=== PATIENT | male | born 1985 | race Caucasian/White ===

== ENCOUNTER 2021-04-25 09:04 | Outpatient (CLI) | payer BC, SELFPAY ==
--- NOTE | ~2021-04-25 | XR_ITS ---
EXAMINATION: XR knee RT min 4V DATE: 04/25/2021 09:44 INDICATION: Right knee pain. TECHNIQUE: 4 views of right knee including standing views were obtained. COMPARISON: None. FINDINGS: Bone alignment is normal. No fracture. There is mild osteoarthritis of medial compartment c haracterized by a tiny osteophyte. No joint space narrowing. There is a small knee joint effusion. IMPRESSION: 1. Mild right knee osteoarthritis. 2. Small right knee joint effusion. Reviewed, dictated and finalized at location A. E WORK [employer]
== END 2021-04-25 09:05 | disposition home or self-care (01) ==
PROVIDERS: PCP Internal Medicine; Visit Provider Internal Medicine
DX: M25.561 Pain in right knee (principal)
CPT/HCPCS: 73564

== ENCOUNTER → 2021-05-07 13:51 | Outpatient (CLI) | payer BC, SELFPAY ==
--- NOTE | ~2021-05-07 | MR_ITS ---
EXAMINATION: MR knee RT wo con DATE: 05/07/2021 14:23 INDICATION: Right knee pain post injury. Meniscal tear.. TECHNIQUE: Magnetic resonance imaging (MRI) of the right knee was performed without intravenous contr ast. Sequences included coronal PD-weighted FSE, coronal PD-weighted FS FSE, sagittal T2-weighted FS E, sagittal PD-weighted FS FSE and axial PD weighted fat saturated FSE. COMPARISON: None. FINDINGS: Medial compartment: Medial meniscus is normal. There is chondral swelling with subtle signal heterogeneity and contour ir regularity at the lateral aspect of the anterior weightbearing medial femoral condyle and associated mild underlying edema-like marrow signal change suspicious for partial thickness chondral tear/fissur e and bone contusion. Normal cartilage at the medial tibial plateau. Lateral compartment: Lateral meniscus is normal. Small linear pattern of cartilage signal irregularity at the central to p osterior aspect of the lateral tibial plateau also suspicious for chondral fissure. Normal cartilage along the weightbearing lateral femoral condyle. Patellofemoral compartment: Articular cartilage is normal. Ligaments and tendons: Anterior and posterior cruciate ligaments are normal. The medial collateral ligament and fibular pippa ateral ligament complex are normal. The extensor mechanism is normal. The visualized medial and later al hamstring tendons as well as the iliotibial band are normal. Fluid: Physiologic amount of fluid in the joint space. No loose osteochondral bodies identified. There is a long multilobulated ganglion cyst which extends approximately 4 cm in length along the anteromedial r im of the medial tibial plateau peripheral to the medial meniscus. Osseous/other: There is additional mild marrow edema along the nonarticular medial side of the anterior weightbearin g medial femoral condyle. No fracture or pathologic marrow replacing process. There are couple low si gnal intensity tiny bone islands at the posterior aspect of the medial and lateral femoral condyles. IMPRESSION: 1. Suggestion of partial-thickness chondral fissures at the lateral tibial plateau and at the anterio r weightbearing medial femoral condyle, the latter with some underlying marrow signal change which co uld be either reactive related to the fissure or due to a posttraumatic bone contusion. 2. additional marrow edema along the nonarticular medial side of the anterior weightbearing medial fe moral condyle also suspicious for bone contusion. 3. Long thin multilobulated ganglion cyst extending along the anteromedial rim of the medial tibial p lateau. Differential would include a pair meniscal cyst although the medial meniscus appears normal w ith no evident tear. Reviewed, dictated and finalized at location A. IMPRESSION: 1. Suggestion of partial-thickness chondral fissures at the lateral tibial plat eau and at the anterior weightbearing medial femoral condyle, the latter with s ome underlying marrow signal change which could be either reactive related to t he fissure or due to a posttraumatic bone contusion. 2. additional marrow edema along the nonarticular medial side of the anterior w eightbearing medial femoral condyle also suspicious for bone contusion. 3. Long thin multilobulated ganglion cyst extending along the anteromedial rim of the medial tibial plateau. Differential would include a pair meniscal cyst a lthough the medial meniscus appears normal with no evident tear.
== END ==
PROVIDERS: PCP Internal Medicine; Visit Provider Internal Medicine
DX: M25.561 Pain in right knee (principal)
CPT/HCPCS: 73721

== ENCOUNTER 2022-01-21 17:23 | Emergency (ER) | payer BC, SELFPAY ==
--- NOTE | 2022-01-21 17:28 | ED.URI ---
HPI - URI/Sore Throat General Chief Complaint: Upper Respiratory Infection Stated Complaint: sore throat, cough, headache, congestion Time Seen by Provider: 01/21/22 17:28 Source: patient and RN notes reviewed History of Present Illness HPI Narrative: Patient is a 36-year-old male who presents to urgent care with complaints of sore throat, cough, headache, congestion and fever. Patient states it started approximately 2-1/2 hours ago. States he did have a slight cough last night. Patient is not taking any medications [id number] for his symptoms. He states he is having a constitution party at his house on Thursday and was wondering if he should ?cancel his constitution party?. States that no one else in the home has been ill. No other acute complaints. No acute distress noted. Patient aware of the plan of care. Some parts of this dictation were generated by voice recognition software and may contain typographical and/or grammatical inaccuracies. Related Data Home Medications Medication Instructions Recorded Confirmed No Home Medications 01/21/22 01/21/22 Allergies Allergy/AdvReac Type Severity Reaction Status Date / Time No Known Allergies Allergy Mild Unverified 01/21/22 17:29 Review of Systems Review of Systems: CONSTITUTIONAL: Reports of fever, chills EYES: Denies visual changes, redness, or discharge. ENT: Reports a sore throat, drainage, nasal congestion CARDIOVASCULAR: Denies chest pain, palpitations, or edema. RESPIRATORY: Denies cough or dyspnea. GASTROINTESTINAL: Denies abdominal pain, nausea, vomiting, or diarrhea. GENITOURINARY: Denies dysuria or hematuria. SKIN: Denies rash or itching. MUSCULOSKELETAL: Denies back pain, joint pain. reports of body aches NEUROLOGIC: Reports of headache All other systems reviewed are negative, except as documented in HPI. PMFSH Comments At the time of my signature, I reviewed and agree with the nursing past medical, surgical, social, and family history. There is no relevant family history pertinent to the patient complaint. Exam Narrative: GENERAL: This is a well-nourished, well-developed patient. Appears fatigued HEAD: normocephalic, atraumatic. EYES: PERRL. Sclera clear/white. Vision is grossly intact. EARS: External ears normal, auditory canals clear and without drainage, TMs normal without perforation. Hearing grossly intact. NOSE: External nose normal with no obvious nasal discharge, nares without redness, yellow rhinorrhea. THROAT: Mucous membranes moist, posterior pharynx clear. Moderate postnasal drainage NECK: Neck supple, non-tender without lymphadenopathy, masses or thyromegaly. CARDIOVASCULAR: Regular rate and rhythm without murmurs, gallops, or rubs. RESPIRATORY: Cough noted on exam. Clear to auscultation. Breath sounds equal bilaterally. No wheezes, rales, or rhonchi. SKIN: warm, intact with no suspicious lesions or rash, good texture and turgor. NEURO: awake, alert, and oriented to person, place and time. There were no obvious focal neurologic abnormalities. EXTREMITIES: No clubbing, cyanosis, or edema. Course Course Level of Care: Express Care Visit Vital Signs Vital signs: Vital Signs Temperature 99.4 F 01/21/22 17:37 Pulse Rate 80 01/21/22 17:37 Respiratory Rate 16 01/21/22 17:37 Blood Pressure 148/97 H 01/21/22 17:37 Pulse Oximetry 100 01/21/22 17:37 Temperature 99.4 F 01/21/22 17:41 Pulse Rate 80 01/21/22 17:41 Respiratory Rate 16 01/21/22 17:41 Blood Pressure 148/97 H 01/21/22 17:41 Pulse Oximetry 100 01/21/22 17:41 Reviewed- Patient is informed that they may have pre-hypertension or hypertension based on a blood pressure reading in the department. I recommend the patient call the primary care provider listed on their discharge instructions or a physician of their choice this week to arrange follow-up for further evaluation of possible pre-hypertension or hypertension. MDM - URI/Sore Throat MDM Narrative Medical deci
[2022-01-21 17:37] VITALS: BP 148/97; PULSE 80; RESP 16; TEMP 37.4; O2SAT 100
[2022-01-21 17:41] VITALS: BP 148/97; PULSE 80; RESP 16; TEMP 37.4; O2SAT 100
== END 2022-01-21 18:07 | disposition home or self-care (01) ==
PROVIDERS: Emergency Provider Nurse Practitioner Family; PCP Internal Medicine
DX: B34.9 Viral infection, unspecified (principal); I10 Essential (primary) hypertension
CPT/HCPCS: 87804; 99213; G0463

== ENCOUNTER 2023-09-25 14:11 | Outpatient (CLI) | payer OTHER, SELFPAY ==
--- NOTE | ~2023-09-25 | US_ITS ---
Left upper chest wall ULTRASOUND Ordering provider: Yaakov Koehler MD History: . Chest wall mass . Comparison: None. FINDINGS/impression: Subcutaneous slightly Hypoechoic area measuring 2.2 x 0.7 x 2.5 cm which is most likely lipoma. Follo w-up advised. Reviewed, dictated and finalized at location A.
== END 2023-09-25 14:12 ==
PROVIDERS: PCP Internal Medicine; Visit Provider Internal Medicine
DX: R22.2 Localized swelling, mass and lump, trunk (principal)
CPT/HCPCS: 76604

== ENCOUNTER 2025-01-04 15:44 | Emergency (ER) | payer OTHER, SELFPAY ==
--- NOTE | ~2025-01-04 | XR_ITS ---
EXAMINATION: KUB: DATE: 01/04/2025 INDICATION: Right flank pain since last Thursday. Nausea. TECHNIQUE: Supine AP view of the abdomen were obtained. COMPARISON: None. FINDINGS: No abnormal calcific densities in the projection of the kidneys. Calcific densities in the pelvis on both sides probably representing phleboliths. No abnormal soft tissue densities are seen. IMPRESSION: 1. No definite abnormal urinary tract calculi on the supine radiograph of the abdomen. Probable phleboliths in the pelvis. If symptoms warrant additional evaluation with ultrasound or CT scan is recommended. Reviewed, dictated and finalized at location T. ARE MANAGER IMPRESSION: 1. No definite abnormal urinary tract calculi on the supine radiograph of the a bdomen. Probable phleboliths in the pelvis. If symptoms warrant additional eval uation with ultrasound or CT scan is recommended.
[2025-01-04 16:06] LABS: EDUAAPPEAR Clear; EDUABILI Negative (Negative); EDUABLOOD Trace (Negative); EDUACOLOR1 Yellow; EDUAGLUCOSE Negative (Negative); EDUAKETONE Negative (Negative); EDUALEUKO Negative (Negative); EDUANITRATE Negative (Negative); EDUAPH 7.0; EDUAPROTEIN Negative (Negative); EDUASPGRAVITY 1.010; EDUAUROBILI 0.2
[2025-01-04 16:07] VITALS: BP 161/95; PULSE 71; RESP 16; TEMP 36.9; O2SAT 100
--- NOTE | 2025-01-04 17:07 | ED_ITS ---
HPI - Back Pain/Injury General Chief Complaint: Urogenital-Male Stated Complaint: R SIDE/FLANK PAIN/NAUSEA Time Seen by Provider: 01/04/25 16:45 Source: patient and RN notes reviewed Mode of arrival: ambulatory Limitations: no limitations History of Present Illness HPI Narrative: 39-year-old male patient presents Express Care complaining of right flank pain for 5 days. Pressure reports the pain radiates to his right mid back patient says is worse with sitting or standing says it gets much better when lying flat. Patient also reports nausea. Patient denies any urinary symptoms, dysuria, hesitancy, frequency, hematuria, abdominal pain, vomiting diarrhea, black tarry stools, blood in stools, difficulty urinating my urinary retention, fevers, eczema chills, sweats, or any other symptoms. Patient has not done anything [id number] to help with symptoms. Patient denies any significant past medical history. Related Data Home Medications ?Medication ?Instructions ?Recorded ?Confirmed ?Last Taken ?Type ezetimibe 10 mg tablet mg 01/04/25 Unknown History rosuvastatin 5 mg tablet mg 01/04/25 Unknown History Allergies Allergy/AdvReac Type Severity Reaction Status Date / Time No Known Allergies Allergy Mild Verified 01/04/25 16:09 Review of Systems Review of Systems: CONSTITUTIONAL: Denies fever, chills, or sweats. EYES: Denies visual changes, redness, or discharge. ENT: Denies rhinorrhea, congestion, sore throat, or otalgia. CARDIOVASCULAR: Denies chest pain, palpitations, or edema. RESPIRATORY: Denies cough or dyspnea. GASTROINTESTINAL: Denies abdominal pain, vomiting, or diarrhea. Positive for n ausea GENITOURINARY: Denies dysuria, penile discharge hesitancy, frequency, urinary retention, decreased urine output, oliguria, or hematuria. SKIN: Denies rash or itching. MUSCULOSKELETAL: Denies back pain, joint pain, or myalgia. Positive for flank pain. NEUROLOGIC: Denies headache, numbness, or weakness. PSYCHIATRIC: Denies anxiety or depression. All other systems reviewed are negative, except as documented in HPI. PMFSH Comments At the time of my signature, I reviewed and agree with the nursing past medical, surgical, social, and family history. There is no relevant family history pertinent to the patient complaint. Exam Narrative: GENERAL: This is a well-nourished, well-developed adult, in no apparent distress. They are non ill-appearing, nontoxic appearing. HEAD: normocephalic, atraumatic. EYES: Sclera clear/white. Conjunctiva normal. Vision is grossly intact. Extraocular movements intact EARS: External ears normal, Hearing grossly intact. NOSE: External nose normal THROAT: Mucous membranes moist, NECK: Neck supple, CARDIOVASCULAR: Regular rate and rhythm without murmurs, gallops, or rubs. RESPIRATORY: Clear to auscultation. Breath sounds equal bilaterally. No wheezes, rales, or rhonchi. GASTROINTESTINAL: Abdomen soft, non-tender, nondistended. Bowel sounds are active. No hepato-splenomegaly, or palpable masses. No guarding or rigidity. No rebound tenderness. Negative Pierre sign. SKIN: warm, Dry, intact with no suspicious lesions or rash, good texture and turgor. NEURO: awake, alert, and oriented to person, place and time. There were no obvious focal neurologic abnormalities. EXTREMITIES: No joint tenderness, effusion, or edema noted. BACK: No deformity. No CVA tenderness. Right flank tender to palpate. No abnormal bruising. Course Course Emergency Course: Portions of this record may have been created with voice recognition software Level of Care: Express Care Visit Vital Signs Vital signs: Vital Signs Temperature 98.5 F 01/04/25 16:07 Pulse Rate 71 01/04/25 16:07 Respiratory Rate 16 01/04/25 16:07 Blood Pressure 161/95 H 01/04/25 16:07 Pulse Oximetry 100 01/04/25 16:07 Temperature 98.5 F 01/04/25 16:07 Pulse Rate 71 01/04/25 16:07 Respiratory Rate 16 01/04/25 16:07 Blood Pressure 161/95 H 01/04/25 16:07 Pulse Oximetry 100 01/04/25 16:07 Reviewed MDM - Back Pain/Injury MDM Narrative Medical decision making narrative: Urine shows small amount of lysed blood present in urine. No evidence of infection. KUB x-ray shows probable stone and the pelvis which could benefit for further evaluation with advanced imaging such as CT scan. Patient reports right flank pain. No peritoneal findings on exam. No abdominal tenderness. Nontoxic appearing, no apparent distress. Patient denies any urinary symptoms or urinary issues. Offered patient ER transfer for further evaluation manage with symptoms since he may have a kidney stone and this urgent care is unable to perform lab work or advanced imaging such as CT scan or ultrasound so we are unable to rule out any hydronephrosis or other acute conditions with the use of advanced imaging. Patient declined would like to try outpatient therapy and will follow up with his PCP or urologist. Patient Given referral to Urology. Will send patient with ketorolac for pain,, and Zofran as needed for nausea and vomiting, and Flomax for the kidney stone. Will send patient with a urine strainer. Strict ER precautions discussed with patient especially symptoms are not improving in the next few days, he develops fevers, urinary symptoms, urinary retention, unable to urinate, decreased urine output, severe pains, vomiting, gross blood in urine, or any serious concerns. Discussed physical exam findings. Advised supportive measures and signs/symptoms to go to the ER. Pt is appropriate for outpt treatment and f/u. Differential Diagnosis Differential diagnosis: Likely renal colic, pyelonephritis and other (Cholecystitis, pneumonia, pleurisy, muscleskeletal injury) Lab Data Attestation: I reviewed the patient's lab results. Labs: Lab Results 01/04/25 Range/Units 16:02 POC Urine Color Yellow POC Urine Clarity Clear POC Urine pH 7.0 POC Ur Specif [place] 1.010 POC Urine Protein Negative (Negative) POC Ur Glucose (UA) Negative (Negative) POC Urine Ketones Negative (Negative) POC Urine Blood Trace (Negative) POC Urine Nitrite Negative (Negative) POC Urine Bilirubin Negative (Negative) POC Urine Urobilinogen 0.2 POC U Leukocyte Esteras Negative (Negative) Imaging Data Radiologist's impression: ITS Impressions Abdomen X-Ray 01/04/25 16:12 IMPRESSION: 1. No definite abnormal urinary tract calculi on the supine radiograph of the abdomen. Probable phleboliths in the pelvis. If symptoms warrant additional evaluation with ultrasound or CT scan is recommended. Critical Care Time Critical Care Time Critical Care Time: No Discharge Plan Discharge Clinical Impression: Acute right flank pain, Calculus, renal Patient Disposition: Home Condition: Stable Instructions: Kidney Stones (ED), How to Strain Your Urine (ED) Additional Instructions: The x-ray of your abdomen suggests a possible stone in your pelvis. Please take Flomax as directed. Take Zofran as needed for nausea and vomiting. Please change positions slowly while taking Flomax as it may cause orthostatic hypotension. Take ketorolac as needed for pain. Do not take any additional NSAIDs while taking this medication including but not limited to aspirin, ibuprofen, Naprosyn, naproxen sodium, Aleve, etc.. You Can take ketorolac for maximum of 5 days max. You may alternate with Tylenol as needed as well. Follow instructions on the bottle. Strain all your urine to collect the stone. Drink plenty of fluids to help facilitate the movement of the stone. Follow-up with PCP and urology in 3-5 days. Please go to the ER if you develops worsening flank pain or abdominal pain, vomiting, fevers, urinary symptoms, burning with urination, frequency, hesitancy, gross blood in your urine, decreased urine output, no urine output, or any serious concerns. Patient Language: Mexican Prescriptions: New ketorolac 10 mg tablet 10 mg PO Q6H PRN (Reason: pain) 5 Days Qty: 20 0RF Rx Instructions: maximum total duration of 5 days from all oral, intranasal, or parenteral formulations tamsulosin [Flomax] 0.4 mg capsule 0.4 mg PO HS Qty: 14 0RF ondansetron 4 mg tablet,disintegrating 4 mg PO Q8H PRN (Reason: nausea and vomiting) Qty: 12 0RF No Action ezetimibe 10 mg tablet rosuvastatin 5 mg tablet Follow-up/Referrals: Yaakov Koehler MD [Primary Care Provider, Internal Medicine] Jose Maguire MD [Physician, Urology] - 3 Days Clinical Impression: Acute right flank pain; Calculus, renal Time of Disposition: 16:56
== END 2025-01-04 17:00 | disposition home or self-care (01) ==
PROVIDERS: PCP Internal Medicine
DX: R10.A1 Flank pain, right side (principal); N20.0 Calculus of kidney
CPT/HCPCS: 74018; 81003; 99213; G0463